=== PATIENT | male | born 2000 | race Caucasian/White ===

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

== ENCOUNTER → 2021-04-05 07:30 | Outpatient (CLI) | payer OTHER, SELFPAY ==
--- NOTE | 2021-04-05 | DI.ECHO.S_ITS ---
[facility]---------+ [facility] +---------+ : : [address] : : : : [place] [address] : : : : [phone] : : : : Phone: [phone] : [phone] +---------+ Echocardiogram Report + + :Name: DAYDAY MERCADO Study Date: 04/05/2021 Height: 73 in : :[facility] ReadingLocation: Weight: 250 lb : : Gender: Male BSA: 2.4 m2 : :: 2000 Age: 20 yrs BP: 137/80 mmHg: :Reason For Study: CARDIAC MURMUR : :Ordering Physician: KATRIN, : :ADELE Performed By: Chrissy Butler : :Referring: ADELE MCGUIRE : + + Interpretation Summary 1) Mildly enlarged left ventricular size with normal size, normal wall motion, and normal systolic function (EF 60-65%). 2) Normal right ventricular size and function. 3) No significant valvular abnormalities. 4) Compared to the Edho done 06/15/2019, hyperdynamic state is no longer present. LV is mildly enlarged on this study. Procedure: A two-dimensional transthoracic echocardiogram with color flow and Doppler was performed. The study quality was technically adequate. Comparison is made with the echocardiogram of 07/26/2019. The patient was in sinus bradycardia with heart rates between 52-71 bpm during the exam. Left Ventricle: There is normal left ventricular wall thickness. The estimated left ventricular end diastolic volume is 151 ml. The ejection fraction is estimated to be 60-65%. Diastolic parameters suggest probable normal left ventricular diastolic function and normal filling pressures. Right Ventricle: The right ventricle is normal in size and function. Atria: Both atria are normal in size. There is no Doppler evidence for an interatrial shunt. Mitral Valve: The mitral valve is normal in structure and function. There is trace mitral regurgitation. Aortic Valve: The aortic valve is trileaflet. The aortic valve opens well. There is no aortic valve stenosis. No aortic regurgitation is present. Tricuspid Valve: The tricuspid valve is normal in structure and function. There is trace tricuspid regurgitation. Pulmonary artery pressures cannot be estimated because of the lack of a measurable TR jet velocity but the IVC suggests a CVP of around 3 mmHg. Pulmonic Valve: The pulmonic valve leaflets are thin and pliable; valve motion is normal. There is no pulmonic valvular regurgitation. Great Vessels: The aortic root is normal size. The dimensions of the ascending aorta are normal. The IVC is of normal diameter and collapses greater than 50% with a sniff. This suggests a low right atrial pressure of 3 mm Hg. Pericardium/ Pleura There is no pericardial effusion. There is no pleural effusion. MMode/2D Measurements & Calculations LVIDd: 6.0 cm LVOT diam: 2.2 cm LVIDs: 3.9 cm Ao root diam: 3.0 cm FS: 35.0 % asc Aorta Diam: 2.7 cm IVSd: 0.69 cm Ao Arch Diam (Prox Trans): 2.8 cm LVPWd: 0.87 cm LV nicholson. diameter/BSA (cm/m^2): 2.5 LV sys. diameter/BSA (cm/m^2): 1.7 LA A2 area: 22.9 cm2 RA long axis: 5.7 cm LA A4 area: 23.0 cm2 RA area: 20.1 cm2 LA length (vol): 5.7 cm RA vol: 60.6 ml LA vol: 78.5 ml RA : 25.6 ml/m2 LA vol index: 33.2 ml/m2 IVC diam: 1.6 cm RVD1 (basal): 3.9 cm TAPSE: 2.0 cm Doppler Measurements & Calculations Ao V2 max: 158.2 cm/sec LVOT Max Julian: 106.8 cm/sec Ao V2 mean: 106.7 cm/sec LV V1 max P.6 mmHg Ao max P.0 mmHg LV V1 VTI: 22.2 cm Ao mean P.2 mmHg DALJIT(I,D): 2.8 cm2 Ao V2 VTI: 30.9 cm DALJIT(V,D): 2.7 cm2 sev ratio: 0.72 DALJIT indexed to BSA (cm^2/m^2): 1.2 MV E max julian: 82.7 cm/sec PA V2 max: 123.8 cm/sec MV A max julian: 30.9 cm/sec PA V2 mean: 89.8 cm/sec MV E/A: 2.7 PA mean P.6 mmHg Med Peak E' Julian: 11.0 cm/sec PA pr(Accel): 7.1 mmHg E/E' med: 7.5 Lat Peak E' Julian: 21.4 cm/sec E/E' lat: 3.9 E/e' average: 5.7 MV dec time: 0.25 sec SVLVOT): 87.7 ml Reading Physician:05:50 PM
== END ==
PROVIDERS: Family Provider Family Medicine; PCP Family Medicine; Referring Provider Internal Medicine Cardiovascular Disease; Visit Provider Internal Medicine Cardiovascular Disease
DX: R01.1 Cardiac murmur, unspecified (principal)
CPT/HCPCS: 93306